=== PATIENT | male | born 1995 | race Caucasian/White ===

== ENCOUNTER 2023-06-01 14:28 | Emergency (ER) | payer OTHER, SELFPAY ==
--- NOTE | 2023-06-01 14:30 | US_ITS ---
WS: [id number] TESTICULAR ULTRASOUND HISTORY: right testicle pain COMPARISON: None available. TECHNIQUE: Real-time and color Doppler imaging or utilized to perform a testicular ultrasound. Right testicle: 4.4 cm x 3.1 cm x 2.6 cm. Normal size and echogenicity. No mass or torsion. Normal color Doppler is present throughout. Systolic and diastolic velocities are both present. Small simple hydrocele. Right epididymis: Normal epididymis with no increased vascularity. Left testicle: 4.5 cm x 2.8 cm x 2.3 cm. Normal size and echogenicity. No mass or torsion. Normal color Doppler is present throughout. Systolic and diastolic velocities are both present. Small simple hydrocele. Left epididymis: Normal epididymis with no increased vascularity. IMPRESSION: NORMAL TESTICULAR ULTRASOUND. No evidence for testicular mass or torsion.
[2023-06-01 14:39] VITALS: BP 175/91; PULSE 73; RESP 16; TEMP 36.8; O2SAT 98; BMI 28.5
--- NOTE | 2023-06-01 15:37 | ED_ITS ---
HPI - Male Genitourinary General: Chief complaint: Urogenital-Male Stated complaint: groin pain Time Seen by Provider: 06/01/23 15:33 Source: patient Mode of arrival: ambulatory Limitations: no limitations History of Present Illness: 28-year-old male states that he is aggravated her right groin in the past states he is playing softball yesterday and dove for a ball and had done the splits he states that since then he has been having pain in his right groin muscle much worse with walking is very tender to touch. States had some slight pain down into his testicle Associated symptoms: Deny nausea or vomiting Review of Systems Const: Denies: fever(s) or chills ENMT: Denies: throat pain or dental pain Card: Denies: chest pain Resp: Denies: dyspnea GI: Denies: abdominal pain, nausea, vomiting or diarrhea : Reports: testicular pain Musc: Denies: neck pain or back pain Skin/Breast: Denies: rash Neuro: Denies: headache(s) Physical Exam Const: COMMON NORMALS: no acute distress HENMT: COMMON NORMALS: normocephalic and atraumatic HEAD & SCALP: normocephalic and atraumatic Eye: COMMON NORMALS: conjunctivae normal CONJUNCTIVA: Yes conjunctivae normal Neck/C-Spine: COMMON NORMALS: supple Chest: COMMONS NORMALS: normal inspection of the chest Resp: COMMON NORMALS: normal respiratory effort Cardio: COMMON NORMALS: regular rate RATE: regular rate GI: COMMON NORMALS: Normal to inspection, nondistended, normoactive bowel sounds present and non-tender : OTHER: Testicle exam is normal tenderness over right groin Extremity: COMMON NORMALS: normal to inspection Course Vital Signs: Vital signs: Vital Signs Temperature 98.2 F 06/01/23 14:39 Pulse Rate 73 06/01/23 14:39 Respiratory Rate 16 06/01/23 14:39 Blood Pressure 175/91 06/01/23 14:39 Pulse Oximetry 98 06/01/23 14:39 Oxygen Delivery Me thod Room Air 06/01/23 14:39 MDM - Male Medical Decision Making Patient presents here with a right groin strain from softball injury his ultrasound testicles normal we will place him on Naprosyn he is stable for discharge she follow-up with PCP and return if worsening. Discharge Plan Discharge Patient Disposition: Home Clinical Impression: Strain of right groin Condition: Stable Prescriptions: New naproxen [Naprosyn] 500 mg tablet 500 mg PO BID PRN (Reason: pain) Qty: 20 0RF Discharge Orders: Discharge ED (Routine); Ordered 06/01/23 Ordered By: Deana Blackburn Referrals: Inder Bowles MD [Primary Care Provider] - Discharge Diet: Advance as tolerated Discharge Activity: Resume usual activity Patient Instructions: Groin Strain (ED) Coding Level of Care Code ED Urology Physician for Susanna Garrido
== END 2023-06-01 15:47 | disposition home or self-care (01) ==
PROVIDERS: Emergency Provider Emergency Medicine; PCP Family Medicine
DX: S39.011A Strain of muscle, fascia and tendon of abdomen, initial encounter (principal); X50.9XXA Other and unspecified overexertion or strenuous movements or postures, initial encounter
CPT/HCPCS: 76870; 99284